=== PATIENT | female | born 1950 | race Caucasian/White ===

== ENCOUNTER → 2022-03-04 | Outpatient (CLI) | payer MEDICARE, OTHER | LOC: HEART 5 14:50 | DX: R47.81 Slurred speech (principal) ==

== ENCOUNTER → 2022-03-09 | Outpatient (CLI) | payer MEDICARE | LOC: HEART 5 03-05 14:00 → ECHO 13:31 → HEART 5 13:31 | DX: R47.81 Slurred speech (principal); I11.9 Hypertensive heart disease without heart failure | CPT/HCPCS: ECHO; 93306 ==